=== PATIENT | male | born 1965 | race Hispanic/Latino ===

== ENCOUNTER 2018-12-15 14:56 | Emergency (ER) | payer SELFPAY ==
--- NOTE | 2018-12-15 15:16 | Emergency Department Report ---
Chief Complaint: Back Pain/Injury Stated Complaint: BACK PAIN Time Seen by Provider: 12/15/18 15:06 - HPI History of Present Illness: Pt is c/o lower back pain and right elbow that began today he says he also bit his tongue, no laceration, two small abrasions present on the tongue he states he was at a restaurant and the joseph fell off the wall he denies hitting his head or LOC no abrasions or cuts No CP, no RODRIGUEZ, no vision changes, no numbness, no unilateral weakness last took BP med yesterday, currently takes lisinopril, did not take this mornings dose initial BP in right arm 240/141, will need intervention and repeat MSE complete MSE screening note: Focused history and physical exam performed. Due to findings the following was ordered: ED Disposition for MSE Condition: Stable
[2018-12-15] MEDS ORDERED: ZESTRIL PO ONE ×2 (15:38→16:12)
[2018-12-15] MEDS ORDERED: TYLENOL PO ONE (15:38)
[2018-12-15] MEDS ORDERED: IBUPROFEN PO ONE (15:38)
--- NOTE | 2018-12-15 15:39 | Emergency Department Report ---
ED General Adult HPI - General Chief complaint: Back Pain/Injury Stated complaint: BACK PAIN Time Seen by Provider: 12/15/18 15:06 Source: patient, RN notes reviewed Mode of arrival: Ambulatory Limitations: No Limitations - History of Present Illness Initial comments: Primary care Dr.: Dr. Mendes This is a pleasant 53-year-old gentleman, right-hand dominant with a past medical history of hypertension. The patient presents to the emergency room after minor blunt trauma. Patient reports he was at an outside restaurant, when the bench reportedly collapsed. He fell onto his lower back, and landed on his right elbow. He did not hit his head. He did not hit his neck. After the fall, he complains of aching throbbing right elbow pain, and lower back pain. HEENT does not radiate anywhere, is intermittent, worsens with palpation, range of motion, and decreases with rest. He denies other injuries, and he denies other complaints. He reportedly did not take his antihypertensive medication this morning. -: Sudden Location: back, right, upper extremity Radiation: non-radiation Severity scale (0 -10): 5 Quality: aching Consistency: intermittent Improves with: rest Worsens with: movement Associated Symptoms: denies other symptoms - Related Data Previous Rx's Medication Instructions Recorded Last Taken Type Ibuprofen [Motrin] 800 mg PO Q8HR PRN #30 tablet 07/17/16 Unknown Rx Lisinopril [Zestril TAB] 20 mg PO QDAY #30 tablet 07/17/16 Unknown Rx traMADol [Ultram 50 MG tab] 50 mg PO Q6HR PRN #20 tablet 07/17/16 Unknown Rx Acetaminophen [Tylenol Arthritis] 650 mg PO Q6HR PRN #30 tablet.er 12/15/18 Unknown Rx Ibuprofen [Motrin] 600 mg PO Q8H PRN #30 tablet 12/15/18 Unknown Rx Allergies Allergy/AdvReac Type Severity Reaction Status Date / Time No Known Allergies Allergy Unverified 07/17/16 09:55 ED Review of Systems ROS: Stated complaint: BACK PAIN Other details as noted in HPI Constitutional: denies: malaise Eyes: denies: eye discharge ENT: denies: ear pain Cardiovascular: denies: chest pain Gastrointestinal: denies: abdominal pain Genitourinary: denies: frequency, hematuria Musculoskeletal: back pain, arthralgia, myalgia Neurological: denies: headache, weakness, numbness, paresthesias, confusion ED Past Medical Hx - Past Medical History Hx Hypertension: Yes - Social History Smoking Status: Never Smoker Substance Use Type: Prescribed - Medications Home Medications: Home Medications Medication Instructions Recorded Confirmed Last Taken Type Ibuprofen [Motrin] 800 mg PO Q8HR PRN #30 tablet 07/17/16 Unknown Rx Lisinopril [Zestril TAB] 20 mg PO QDAY #30 tablet 07/17/16 Unknown Rx traMADol [Ultram 50 MG tab] 50 mg PO Q6HR PRN #20 tablet 07/17/16 Unknown Rx Acetaminophen [Tylenol Arthritis] 650 mg PO Q6HR PRN #30 tablet.er 12/15/18 Unknown Rx Ibuprofen [Motrin] 600 mg PO Q8H PRN #30 tablet 12/15/18 Unknown Rx ED Physical Exam - General Limitations: No Limitations General appearance: alert, in no apparent distress - Head Head exam: Present: atraumatic, normocephalic - Eye Eye exam: Present: normal appearance, EOMI. Absent: nystagmus - ENT ENT exam: Present: normal exam, normal orophraynx, mucous membranes moist, normal external ear exam - Neck Neck exam: Present: normal inspection, full ROM. Absent: tenderness, meningismus - Respiratory Respiratory exam: Present: normal lung sounds bilaterally. Absent: respiratory distress - Cardiovascular Cardiovascular Exam: Present: regular rate, normal rhythm, normal heart sounds. Absent: bradycardia, tachycardia, irregular rhythm, systolic murmur, diastolic murmur, rubs, gallop - GI/Abdominal GI/Abdominal exam: Present: soft. Absent: distended, tenderness, guarding, rebound, rigid, pulsatile mass - Rectal Rectal exam: Present: deferred - Extremities Exam Extremities exam: Present: normal inspection, full ROM, tenderness (there is point tenderness at the olecranon of the right elbow. There is no redness, pus or streaking. There is full range of motion of the right elbow.), other (2+ pulses noted in the bilateral upper, lower extremities. Compartments soft. No long bony tenderness. The pelvis is stable.). Absent: calf tenderness - Back Exam Back exam: Present: normal inspection, full ROM, paraspinal tenderness. Absent: CVA tenderness (R), CVA tenderness (L), muscle spasm - Neurological Exam Neurological exam: Present: alert, oriented X3, CN II-XII intact, normal gait, other (Extraocular movements intact. Tongue midline. No facial droop. Facial sensation intact to light touch in the V1, V2, V3 distribution bilaterally. 5 and 5 strength in 4 extremities.. Sensation is intact to light touch in 4 extremities.). Absent: motor sensory deficit - Psychiatric Psychiatric exam: Present: normal affect, normal mood - Skin Skin exam: Present: warm, dry, intact, normal color. Absent: rash ED Course Vital Signs 12/15/18 15:06 Temperature 98.1 F Pulse Rate 70 Respiratory 18 Rate Blood Pressure 219/118 O2 Sat by Pulse 96 Oximetry ED Medical Decision Making - Radiology Data Radiology results: image reviewed interpreted by me: X-ray of the right elbow negative for fracture, dislocation. X-ray of the lumbar spine negative for acute disease. - Medical Decision Making Differential diagnosis, including not limited to: Muscular back pain, elbow contusion, hypertension, medication noncompliance Assessment and plan: 53-year-old gentleman with mild blunt traumatic injury, with hypertension, now improved. Blood pressure currently 185/122. We will give the patient his daily dose and was inappropriate. He has a GCS of 15, with no midline cervical spine pain or tenderness, walks with a steady gait, has appropriate strength, sensation, and no pulsatile abdominal mass. He has equal pulses in the upper, lower extremities bilaterally. Doubt epidural compression syndrome. History, physical exam not consistent with AAA. Patient counseled to expect to be sore over the next few days. Counseled to remain compliant with his antihypertensive therapy, and to follow- up with his outpatient primary care doctor. Critical care attestation.: If time is entered above; I have spent that time in minutes in the direct care of this critically ill patient, excluding procedure time. ED Disposition Clinical Impression: Elbow pain, right, Back pain, Fall Disposition: - TO HOME OR SELFCARE Is pt being admited?: No Does the pt Need Aspirin: No Condition: Stable Instructions: Arthralgia (ED), Hypertension (ED) Additional Instructions: Pain typically gets worse before it gets better after mechanical fall. Rest, avoid heavy lifting, and avoid strenuous physical activities. Take the pain medications as needed/directed. Please remain compliant with hypertension, blood pressure medications. Long-term complications of hypertension and elevated blood pressure include stroke, heart attack, disability, loss of quality of life. Please follow-up with your primary care doctor within the next for 6 weeks. Please return to the emergency room right away with new, worsening or different symptoms. Referrals: MARLEN MENDES MD [Referring] - as needed
[2018-12-15] MEDS ORDERED: ZESTRIL PO STA (16:12)
[2018-12-15 16:30] VITALS: BP 187/134
--- NOTE | 2018-12-15 17:29 | XRay Report ---
PROCEDURE: XR SPINE LUMBOSACRAL 2-3V TECHNIQUE: AP, lateral and coned-down views of the lumbar spine HISTORY: back pain fall COMPARISONS: None . FINDINGS: The vertebral body heights and disc spaces are well maintained. The alignment is normal. No evidence for spondylolysis or spondylolisthesis is seen. Pedicles are intact bilaterally at all levels. The pa raspinal soft tissues are unremarkable. IMPRESSION: Normal lumbar spine. This document is electronically signed by Claudia Ariza MD., December 15 2018 05:27:25 PM ET
--- NOTE | 2018-12-15 17:30 | XRay Report ---
PROCEDURE: XR ELBOW 3+V RT TECHNIQUE: AP, lateral, and oblique views of the right elbow HISTORY: right elbow pain fall COMPARISONS: None . FINDINGS: No evidence for acute fracture or dislocation is seen. The soft tissues are unremarkable. The anterio r fat pad is normal. No posterior fat pad is noted. Bony mineralization is normal. IMPRESSION: No acute soft tissue or bony abnormality noted. This document is electronically signed by Claudia Ariza MD., December 15 2018 05:28:03 PM ET
== END 2018-12-15 16:54 | disposition home or self-care (01) ==
LOC: ED 14:56
DX: M70.21 Olecranon bursitis, right elbow (principal); M54.5 Low back pain; I10 Essential (primary) hypertension; W17.89XA Other fall from one level to another, initial encounter; Y93.89 Activity, other specified; Y92.511 Restaurant or cafe as the place of occurrence of the external cause; Y99.8 Other external cause status
CPT/HCPCS: 72100; 99283